=== PATIENT | female | born 2000 | race Caucasian/White ===

== ENCOUNTER 2022-07-24 10:55 | Emergency (ER) | payer OTHER, MEDICAID, SELFPAY ==
[2022-07-24 10:55] VITALS: BP 128/79; PULSE 84; RESP 18; TEMP 36.5; O2SAT 99; BMI 32.8
--- NOTE | 2022-07-24 12:07 | US_ITS ---
STUDY: ABDOMINAL ULTRASOUND - RIGHT UPPER QUADRANT REASON FOR VISIT: Female, 22 years old . Right upper quadrant pain. TECHNIQUE: Ultrasound evaluation of the right upper quadrant was performed with real-time and static qureshi-scale imaging. TECHNICAL QUALITY: Adequate. COMPARISON: None. FINDINGS: Liver: The liver measures 11.9 cm. There is normal echogenicity of the liver. The bile ducts are within normal limits. There is hepatic color flow. The direction of portal flow is hepatopetal. There is no demonstrated mass lesion. Gallbladder: Normal distended gallbladder. The gallbladder wall measures 2.3 mm. There is a negative sonographic Zhao''s sign. There is no pericholecystic fluid. There are no gallstones. Common Bile Duct (C.B.D.): The common bile duct measures 2.2 mm. Pancreas: There is nonvisualization of the pancreas due to overlying bowel gas. Right Kidney: Normal size of the right kidney. The right kidney measures 9.5 cm x 4.4 cm x 4 cm. Normal renal cortex. The right cortex measures 1.5 cm. There is no demonstrated renal mass or cyst. There is no right hydronephrosis. US/Gallbladder IMPRESSION: Normal right upper quadrant ultrasound examination. Electronically Signed: Dave Bergman MD at 13:31 EDT ,
--- NOTE | 2022-07-24 12:09 | ED.VIS.GI ---
HPI HPI - GI History of Present Illness Chief Complaint: Abd Pain Detail of Chief Complaint: Abdominal pain since October Informant: patient Abdominal Pain/Flank Pain Current Severity: 03/09 Narrative Narrative: Patient presents the emergency department complaint of abdominal pain since October of this year. Patient describes frequent loose stools and watery stools. Patient has been seen at [facility] where she has had a pelvic ultrasound which was unremarkable. Patient had some blood work which apparently was unremarkable. Patient also was seen and had EGD and colonoscopy which were unremarkable in March. Patient states patient has frequent abdominal pain is mostly upper abdomen and made worse by eating. Patient is attempted to change her diet and eat more protein and raw vegetables and fruit and that has not made any difference in her pain. She denies any blood in her stool. She denies family history of inflammatory bowel disease. [facility] Medical History (Updated 07/24/22 @ 16:[address] Karon Gómez, DO) Abdominal pain Diarrhea Hemorrhage of anus and rectum IBS (irritable bowel syndrome) Pelvic pain Home Medications dicyclomine 10 mg capsule 20 mg PO TIDAC #20 CAPSULES 07/24/22 [Rx Last Taken Unknown] medroxyprogesterone 150 mg/mL intramuscular suspension (Depo-Provera) 300 mg IM QMONTH 07/24/22 [History Last Taken Unknown] ondansetron 4 mg disintegrating tablet 4 mg PO Q8H PRN PRN Nausea #10 tabs 07/24/22 [Rx Last Taken Unknown] Allergy/AdvReac Type Severity Reaction Status Date / Time No Known Allergies Allergy Verified 07/24/22 10:57 Family History (Updated 06/13/22 @ 11:12 by Radha Brath) Father Osteomyelitis Diabetes Mother Thyroid disorder Asthma Kidney disease Social History (Updated 06/13/22 @ 11:12 by Radha Barth) Smoking Status: Former smoker alcohol intake: current alcohol intake frequency: a few times a month ROS ROS ED Review of Systems ROS Unobtainable: other Constitutional Constitutional ED: Reports lethargy; Denies chills, fever(s), sweats or weight loss Eyes Eyes: Denies blurry vision, change in vision or diplopia ENT ENT ED: Denies rhinorrhea or sore throat Cardiovascular Cardiovascular: Denies chest pain, orthopnea or racing heartbeat Respiratory/Chest Respiratory/Chest: Denies cough, dyspnea, dyspnea on exertion, orthopnea or sputum Gastrointestinal Gastrointestinal: Reports abdominal pain, diarrhea and nausea; Denies vomiting Genitourinary Genitourinary ED: Denies dysuria, hematuria or urinary frequency Musculoskeletal Musculoskeletal: Denies arthralgias, back pain, myalgias or neck pain Integumentary Denies abscess, Abrasions or rash Neurologic Neurologic: Denies headache(s) or weakness Psychiatric Psychiatric: Denies anxiety, depression or suicidal thoughts Endocrine Endocrinology: Denies polydipsia, polyphagia or polyuria Hematologic/Lymphatic Hematologic/Lymphatic: Denies easy bleeding, easy bruising or lymphadenopathy Allergic/Immunologic Allergic/Immunologic ED: Denies mouth swelling, tongue swelling or urticaria EXAM Physical Exam Const Vital Signs: 07/24/22 10:55 07/24/22 15:25 Temperature 97.7 F L Temperature Source Temporal Pulse Rate 84 85 Respiratory Rate 18 16 Blood Pressure 128/79 H 107/77 Blood Pressure Mean 95 87 Pulse Ox 99 99 Oxygen Delivery Method Room Air Room Air Positive well nourished and well developed General Appearance ED: well developed and NAD HEENT Reports TM's clear and moist mucous membranes normocephalic and atraumatic; Negative for trauma or tenderness Tympanic Membrane ED: Yes TM's clear Eyes PERRL and EOMs intact bilaterally General Eye ED: Negative for pale conjunctiva or scleral icterus Neck no lymphadenopathy, supple and no JVD General: Negative for tenderness Chest Wall inspection of chest normal and palpation of chest normal Chest: Negative for tenderness Resp normal respiratory effort and clear to auscultation bilaterally Effort and Inspection: Negative for respiratory distress or pain with movement Auscultation: Negative for rhonchi, wheezes or diminished lung sounds Cardio regular rate, regular rhythm, S1 normal heart sound, S2 normal heart sound and no murmurs Peripheral Pulses: pulses 2+ throughout GI normal to inspection, nondistended, normoactive bowel sounds, soft to palpation, non-distended and no masses GI Narrative: Tenderness to right upper quadrant with guarding. She has a positive Zhao sign. No rebound, rigidity, or peritoneal signs. Back/Spine no CVA tenderness and no thoracic nor lumbar tenderness Extremity normal to inspection General Extremety ED: Negative for edema General Extremity: Negative for edema Neuro oriented x3, CN's II-XII intact bilaterally, no sensory deficits noted and gait normal Sensorium / Orientation: awake, alert, oriented to person, oriented to place and oriented to time Motor Exam: strength 5/5 throughout and strength abnormal Psych mental status grossly normal Skin no rashes or lesions noted and no wounds MDM MDM MDM Narrative Medical decision making narrative: IV line established on arrival. Patient was medicated morphine and Zofran. Patient had normal labs. Urinalysis was unremarkable. Patient had an ultrasound of the gallbladder that was normal. I did order a CT scan of the abdomen pelvis with IV and p.o. contrast and the results of this will be pending. Case turned over to evening physician awaiting CT results and final disposition. I felt that if this CT was normal patient could be sent home with Dai and Kirk. Patient has a follow-up scheduled with GI. Lab Data Attestation: I reviewed the patient's lab results. Labs: Laboratory Results - last 24 hr 07/24/22 07/24/22 07/24/22 12:15 12:25 12:25 WBC 10.3 RBC 4.92 Hgb 14.5 Hct 43.8 MCV 89.0 MCH 29.5 MCHC 33.1 RDW Std Deviation 39.7 RDW Coeff of Ramon 12.1 Plt Count 285 MPV 10.0 Immature Gran % (Auto) 0.300 Neut % (Auto) 74.7 H Lymph % (Auto) 18.6 L [place] % (Auto) 5.3 Eos % (Auto) 0.8 Baso % (Auto) 0.3 Absolute Neuts (auto) 7.7 Absolute Lymphs (auto) 1.91 Nucleated RBC % 0 Sodium 141 Potassium 3.6 Chloride 109 H Carbon Dioxide 27.0 Anion Gap 5 BUN 7 Creatinine 0.73 Estim Creat Clear Calc 99.15 Est GFR (MDRD) Af Amer 126 Est GFR (MDRD) Non-Af 104 BUN/Creatinine Ratio 9.5 L Glucose 86 Lactic Acid Calcium 9.2 Total Bilirubin 0.50 AST 9 L ALT 19 Alkaline Phosphatase 71 Total Protein 7.7 Albumin 4.1 Globulin 3.6 Albumin/Globulin Ratio 1.1 Lipase 87 Serum , Qual Urine Color Yellow Urine Clarity Sl. Cloudy Urine pH 8.0 Ur Specific [place] 1.010 Urine Protein Negative Urine Glucose (UA) Normal Urine Ketones Negative Urine Occult Blood Negative Urine Nitrite Negative Urine Bilirubin Negative Urine Urobilinogen Normal Ur Leukocyte Esterase 25 H Urine RBC 0 SEEN Urine WBC 0-5 SEEN Ur Squamous Epith Cells 0-5 SEEN Urine Bacteria 0 SEEN Urine Mucus 0 SEEN 07/24/22 07/24/22 12:25 12:25 WBC RBC Hgb Hct MCV MCH MCHC RDW Std Deviation RDW Coeff of Ramon Plt Count MPV Immature Gran % (Auto) Neut % (Auto) Lymph % (Auto) [place] % (Auto) Eos % (Auto) Baso % (Auto) Absolute Neuts (auto) Absolute Lymphs (auto) Nucleated RBC % Sodium Potassium Chloride Carbon Dioxide Anion Gap BUN Creatinine Estim Creat Clear Calc Est GFR (MDRD) Af Amer Est GFR (MDRD) Non-Af BUN/Creatinine Ratio Glucose Lactic Acid 1.5 Calcium Total Bilirubin AST ALT Alkaline Phosphatase Total Protein Albumin Globulin Albumin/Globulin Ratio Lipase Serum , Qual NEGATIVE Urine Color Urine Clarity Urine pH Ur Specific [place] Urine Protein Urine Glucose (UA) Urine Ketones Urine Occult Blood Urine Nitrite Urine Bilirubin Urine Urobilinogen Ur Leukocyte Esterase Urine RBC Urine WBC Ur Squamous Epith Cells Urine Bacteria Urine Mucus Radiography Diagnostic Testing: Clinical Impression(s) from Imaging Studies Gallbladder Ultrasound 07/24/22 12:07 IMPRESSION: Normal right upper quadrant ultrasound examination. Electronically Signed: Dave Bergman MD at 13:31 EDT , Discharge Plan Triage Chief Complaint: Abd Pain ED Provider: Karon Gómez Dx/Rx/DC Orders Clinical Impression: Abdominal pain Instructions: ED Abdominal Pain Unkn Cause Fem Prescriptions: New ondansetron [ondansetron] 4 mg tablet,disintegrating 4 mg PO Q8H PRN PRN (Reason: Nausea) Qty: 10 0RF dicyclomine 10 mg capsule 20 mg PO TIDAC Qty: 20 0RF No Action medroxyprogesterone [Depo-Provera] 150 mg/mL Suspension 300 mg IM QMONTH Primary Care Provider: Rosalie Hopkins NP Referrals: Rosalie Hopkins NP, [employer] MACHINE SET UP OPERATOR-C [Primary Care Provider] - Disposition Disposition: Home, Self Care
[2022-07-24] MEDS: 0.9% Normal Saline 1,000 ML 125 ML IV (12:23)
[2022-07-24 12:30] LABS: Bacteria 0 SEEN /hpf (None Seen); Mucous, Urine 0 SEEN /hpf (<or=2+); Red Blood Cells-Urine 0 SEEN /hpf (0-5)
[2022-07-24 12:32] LABS: Absolute Lymphocyte Count 1.91 X10^3/uL (0.83-4.51); Absolute Neutrophil Count 7.7 X10^3/uL (2.0-7.7); Basophil# 0.03 X10^3/uL; Basophil% 0.3 % (0-1); Eosinophil# 0.08 X10^3/uL; Eosinophils% 0.8 % (0-5); Hematocrit 43.8 % (37-47); Hemoglobin 14.5 g/dL (12.0-15.0); Lymphocyte # 1.91 X10^3/ul (0.83-4.51); Lymphocyte % 18.6 % (19-41); Mean Corp Hgb Conc 33.1 g/dL (32-36); Mean Corpuscular Hgb 29.5 pg (27.0-32.0); Monocyte# 0.55 X10^3/uL; Monocyte% 5.3 % (0-10); NRBC Flagged by Analyzer 0 % (0-5); Neutrophil # 7.69 X10^3/uL (2.7-7.7); Neutrophil % 74.7 % (47-70); Platelet Count 285 K/mm3 (150-450); RBC Distribution Width CV 12.1 % (11.6-14.6); RBC Distribution Width SD 39.7 fl (35.1-43.9); Red Blood Count 4.92 M/mm3 (4.2-5.4); White Blood Count 10.3 K/mm3 (4.4-11.0)
[2022-07-24 12:36] LABS: Color, Urine Yellow (Yellow); Glucose, Dipstick Normal (Normal); Ketone-Dipstick Negative (Negative); Leukocyte Esterase-Dipstick 25 /ul (Negative); Nitrite-Dipstick Negative (Negative); Occult Blood-Urine Negative /ul (Negative); Protein-Dipstick Negative (Negative); Urine Bilirubin Dipstick Negative (Negative); Urine Clarity Sl. Cloudy (Clear); Urine Urobilinogen Normal (Normal)
[2022-07-24 12:42] LABS: Squamous Epithelial Cells - UA 0-5 SEEN /hpf (5-10); White Blood Cells 0-5 SEEN /hpf (0-5)
[2022-07-24 12:50] LABS: ALB/GLOB Ratio 1.1 RATIO (0.9-2.4); AST(SGOT) 9 U/L (15-37); Alanine Aminotransfer ALT/SGPT 19 U/L (13-56); Albumin, Serum 4.1 g/dL (3.2-5.0); Alkaline Phosphatase 71 U/L (45-117); Anion Gap 5 (5-15); BUN 7 mg/dL (7-18); BUN/Creat Ratio 9.5 RATIO (10-20); Calcium,Total 9.2 mg/dL (8.5-10.1); Chloride 109 mmol/L (98-107); Creatinine, Serum 0.73 mg/dL (0.55-1.02); EST Glomerular Filtration Rate 104 mL/min (>60); Est Glom Filt Rate - Afr Amer 126 mL/min (>60); Estimated Creatinine Clearance 99.15 ml/min; Globulin 3.6 g/dL (2.2-4.2); Glucose 86 mg/dL (74-106); Lipase 87 U/L (73-393); Potassium 3.6 mmol/L (3.5-5.1); Protein, Total 7.7 g/dL (6.4-8.2); Sodium Level 141 mmol/L (136-145)
[2022-07-24 13:01] LABS: Lactic Acid 1.5 mmol/L (0.4-1.9)
[2022-07-24 13:03] LABS: Internal QC Validated? YES +Cl - CLEAR BKGD; Pregnancy, Serum, hCG Quali. NEGATIVE Negative
--- NOTE | 2022-07-24 15:20 | CT_ITS ---
STUDY: CT Abdomen And Pelvis W/ Contrast Injection 07/24/2022 5:27 PM REASON FOR EXAM: Female, 22 years old. ABDOMINAL PAIN abdominal pain TECHNIQUE: Transaxial images were obtained with oral contrast, and with Oral and amp; IV Gastrografin and amp; 100mL Isovue-370 intravenous contrast. Individualized dose optimization techniques were used for this CT. COMPARISON: None. FINDINGS: The visualized lung bases are unremarkable. The visualized portions of the heart are within normal limits. Unremarkable liver. Unremarkable gallbladder and extrahepatic biliary system. Unremarkable spleen. Unremarkable pancreas. Unremarkable bilateral adrenal glands. No acute findings of the right kidney. No acute findings of the left kidney. Unremarkable visualized stomach. Unremarkable small intestine. There is wall inflammation of the entire colon. This can suggest a colitis. This can also suggest incomplete distension of the colon. The appendix is visualized and appears unremarkable. There are no acute findings of the abdominal aorta. Unremarkable inferior vena cava. Subcentimeter mesenteric lymph nodes. Unremarkable urinary bladder. There is an umbilical hernia containing fat. Unremarkable osseous structures. CT/Abdomen/Pelvis WITH Contrast IMPRESSION: (NOT LISTED IN ORDER OF SIGNIFICANCE) There is pancolitis. Other findings as above. Electronically Signed: Smith Herrmann MD at 17:34 EDT ,
[2022-07-24 15:25] VITALS: BP 107/77; PULSE 85; RESP 16; O2SAT 99
[2022-07-24] MEDS: Morphine 4 MG/ML Syringe IV (15:26)
[2022-07-24] MEDS: Ondansetron 4 MG/2 ML Vial IV (15:26)
[2022-07-24 17:16] VITALS: BP 111/81; PULSE 87; RESP 16; O2SAT 100
[2022-07-24 18:43] VITALS: BP 112/75; PULSE 75; RESP 16; O2SAT 98
== END 2022-07-24 18:44 | disposition home or self-care (01) ==
PROVIDERS: Emergency Medicine; Emergency Provider Emergency Medicine; PCP Nurse Practitioner Family; Visit Provider Emergency Medicine
DX: R10.9 Unspecified abdominal pain (principal); R19.7 Diarrhea, unspecified; R11.0 Nausea; Z87.891 Personal history of nicotine dependence
CPT/HCPCS: 74177; 76705; 80053; 81001; 83605; 83690; 84703; 85025; 96374; 96375; 99283; J7030; Q9967; A4216; J2405

== ENCOUNTER 2022-08-17 16:26 | Outpatient (CLI) | payer OTHER, MEDICAID, SELFPAY ==
[2022-08-17 17:30] LABS: Absolute Lymphocyte Count 2.26 X10^3/uL (0.83-4.51); Absolute Neutrophil Count 6.9 X10^3/uL (2.0-7.7); Basophil# 0.03 X10^3/uL; Basophil% 0.3 % (0-1); Eosinophil# 0.09 X10^3/uL; Eosinophils% 0.9 % (0-5); Hematocrit 41.3 % (37-47); Hemoglobin 14.2 g/dL (12.0-15.0); Lymphocyte # 2.26 X10^3/ul (0.83-4.51); Lymphocyte % 22.9 % (19-41); Mean Corp Hgb Conc 34.4 g/dL (32-36); Mean Corpuscular Hgb 30.2 pg (27.0-32.0); Mean Corpuscular Volume 87.9 fL (81-99); Mean Platelet Vol. 9.9 fl (6.2-12.0); Monocyte# 0.61 X10^3/uL; Monocyte% 6.2 % (0-10); NRBC Flagged by Analyzer 0 % (0-5); Neutrophil # 6.88 X10^3/uL (2.7-7.7); Neutrophil % 69.5 % (47-70); Platelet Count 312 K/mm3 (150-450); RBC Distribution Width CV 12.1 % (11.6-14.6); RBC Distribution Width SD 39.4 fl (35.1-43.9); White Blood Count 9.9 K/mm3 (4.4-11.0)
[2022-08-17 17:49] LABS: Erythrocyte Sedimentation Rate 14 mm/hr (0-30); Microcytosis 9.9
[2022-08-17 18:20] LABS: Rubella IgG Reactive (Nonreactive)
[2022-08-17 18:22] LABS: ALB/GLOB Ratio 1.3 RATIO (0.9-2.4); AST(SGOT) 10 U/L (15-37); Alanine Aminotransfer ALT/SGPT 20 U/L (13-56); Albumin, Serum 4.4 g/dL (3.2-5.0); Alkaline Phosphatase 61 U/L (45-117); Amylase 32 U/L (25-115); Anion Gap 10 (5-15); BUN 5 mg/dL (7-18); BUN/Creat Ratio 7.8 RATIO (10-20); CPK Total, Creatine Kinase 64 U/L (26-192); CRP 6.22 mg/L (0.0-3.0); Calcium,Total 9.9 mg/dL (8.5-10.1); Chloride 110 mmol/L (98-107); Creatinine, Serum 0.64 mg/dL (0.55-1.02); EST Glomerular Filtration Rate 121 mL/min (>60); Est Glom Filt Rate - Afr Amer 147 mL/min (>60); Globulin 3.5 g/dL (2.2-4.2); Glucose 85 mg/dL (74-106); LDH 134 U/L (84-246); Lipase 122 U/L (73-393); Potassium 3.5 mmol/L (3.5-5.1); Protein, Total 7.9 g/dL (6.4-8.2); Sodium Level 140 mmol/L (136-145)
[2022-08-20 13:07] LABS: Anti-Centromere B Ab <0.2 AI (0.0-0.9); Anti-Chromatin <0.2 AI (0.0-0.9); Anti-Jo <0.2 AI (0.0-0.9); Anti-Scleroderma-70 AB <0.2 AI (0.0-0.9); RNP Ab <0.2 AI (0.0-0.9); SJOGREN'S Anti-SS-A test < 0.2 AI (0.0-0.9); SJOGREN'S Anti-SS-B test < 0.2 AI (0.0-0.9); Smith Ab 0.2 AI (0.0-0.9)
[2022-08-20 15:08] LABS: Endomysial Antibody IgA Negative (Negative)
[2022-08-20 17:03] LABS: Immunoglobulin A 143 mg/dL (87-352); t-Transglutaminase IgA <2 U/mL (0-3)
[2022-08-20 17:38] LABS: Anti-dsDNA Ab 1 IU/mL (0-9)
[2022-08-25 01:06] LABS: Albumin 4.3 g/dL (2.9-4.4); Alpha-1-Globulins 0.3 g/dL (0.0-0.4); Alpha-2-Globulins 0.9 g/dL (0.4-1.0); Cytoplasmic Ab (C-ANCA) <1:20 titer (Neg:<1:20); HEPATITIS B SURFACE AG Negative (Negative); Hep C Antibodies <0.1 s/co ratio (0.0-0.9); Hepatitis A IgM Antibody Negative (Negative); Hepatitis B Core AB IgM Negative (Negative); Immunoglobulin A 139 mg/dL (87-352); Immunoglobulin E 16 IU/mL (6-495); Immunoglobulin G 911 mg/dL (586-1602); Immunoglobulin M 70 mg/dL (26-217); PROEL- TOTAL PROTEIN 7.6 g/dL (6.0-8.5); QNTFERON TB Mitogen Value > 10.00 IU/mL (.); QNTFERON TB Nil Value 0.09 IU/mL (.); QNTFERON TB1+ Ag Value 0.08 IU/mL (.); QNTFERON TB2+ Ag Value 0.03 IU/mL (.)
[2022-08-26 14:43] LABS: Aldolase 5.2 U/L (3.3-10.3); B. pertussis IgG 2.66 index (0.00-0.94); Mumps Antibody, IgM < 0.80 AU (0.00-0.79); Perinuclear Ab (P-ANCA) <1:20 titer (Neg:<1:20); QNTIFERON TB Positive Criteria Negative (Negative); V-Zoster IgG (Immunity) 195 index (Immune >165)
== END 2022-08-17 23:59 | disposition home or self-care (01) ==
PROVIDERS: PCP Nurse Practitioner Family; Referring Provider Internal Medicine Gastroenterology; Visit Provider Internal Medicine Gastroenterology
DX: R19.7 Diarrhea, unspecified (principal)
CPT/HCPCS: 36415; 80053; 80074; 82085; 82150; 82550; 82784; 82785; 83516; 83615; 83690; 84165; 85025; 85652; 86140; 86225; 86235; 86255; 86256; 86334; 86480; 86615; 86735; 86762; 86787

== ENCOUNTER 2022-09-05 08:52 | Outpatient (CLI) | payer OTHER, MEDICAID, SELFPAY ==
[2022-09-08 20:30] LABS: Calprotectin, Stool 48 ug/g (0-120)
== END 2022-09-05 23:59 | disposition home or self-care (01) ==
LOC: LABSPEC 08:54
PROVIDERS: PCP Nurse Practitioner Family; Referring Provider Internal Medicine Gastroenterology; Visit Provider Internal Medicine Gastroenterology
DX: R19.7 Diarrhea, unspecified (principal)
CPT/HCPCS: 82653; 83630; 83993

== ENCOUNTER 2022-11-28 06:06 | Day surgery (SDC) | payer OTHER, MEDICAID, SELFPAY ==
[2022-11-28 06:31] VITALS: BP 103/66; PULSE 74; RESP 18; TEMP 36.3; O2SAT 100
[2022-11-28 06:38] LABS: Internal QC Validated? YES +Cl - CLEAR BKGD; Pregnancy, Urine Negative Negative
[2022-11-28] MEDS: Lactated Ringers 1,000 ML 15 ML IV (06:44)
--- NOTE | 2022-11-28 07:04 | PCM.HP.BLA ---
History and Physical Date of Admission: 11/28/22 22 F who presents to the office today for one month follow-up diarrhea with blood, abdominal pain and cramping, nausea.? She reports a lifelong history of loose stools however she had a significant change in bowels in October 2021??she quit smoking and then developed significant diarrhea, more frequent stools, cramping and abdominal pain.? The rectal bleeding began in March 2022. Mornings are the worst, 5-6 bouts of diarrhea, the diarrhea wakes her in the morning. She has woken in the night with diarrhea. Occas tenesmus. Intermittent bouts of rectal bleeding, can be mixed in stool, or just blood passing with some clots, she reports rectal bleeding for the past 5 days. Has constant nausea, doesn't vomit; no relief with Phenergan.? She has heartburn, does not take anything for that.? Lots of belching.? She had blurry vision on dicyclomine, the medication did not help with her symptoms.? She has been on hyoscyamine routinely but no relief of the cramping or pain or diarrhea.? Also no relief with Zenpep.? She has had a 20 pound unintentional weight loss this year.? In addition to quitting smoking she made improvements in nutrition, is cooking at home.? She tries to eat a yogurt every morning. 07/2022 labs: CRP elevated 6.22, IBD panel suggestive of Crohn's.? Remainder of work-up unremarkable including stool lactoferrin, stool calprotectin, fecal elastase, CBC, CMP, ESR, immunoglobulins, SPEP with TORREY, ANCA, ANISH comprehensive, celiac, hepatitis panel, QuantiFERON TB Gold Stool studies lactoferrin, C.difficile, occult, enteric pathogens, ova/parasites WNL. Biochemical workup CBC, CMP, LFT AST L9 Colonoscopy and EGD Dr. Nando Denise which she reports as normal; Argelia reports he did not take biopsies. CT abd/pel 07.24.22 noting wall inflammation of the entire colon suggesting colitis versus incomplete distention. ROS Const Constitutional: Positive for fatigue and weight change ENT ENT: No difficulty swallowing Gastro GI: No abdominal pain, belching, bloating, change in bowel habits, change in stool character, coffee ground emesis, constipation, cramping, diarrhea, heartburn, difficulty swallowing, feeling full early, excessive flatus, incontinent of stools, Vomiting blood/hematemesis, Blood in stool, loose stools, Black,tarry stools, nausea/dyspepsia, pain with swallowing, vomiting or other Musc Musculoskeletal: No joint pain Skin Skin: No yellowing of the eye or itchy eyes Psych Psychiatric: Positive for anxiety and Positive for depression Endo Endocrine: Positive for fatigue and weight change Aller/Imm Allergy/Immunologic: No itchy eyes Raffaele/Lymp Hematologic/Lymphatic: No easy bleeding or easy bruising Exam Const General: cooperative, comfortable and no acute distress Nutritional Appearance: obese Orientation: alert, awake and oriented x3 HENMT Head: normal to inspection Eyes Conjunctivae: conjunctivae normal Sclera: sclerae normal Chest Chest palpation & inspection: normal inspection of the chest Resp Effort & Inspection: normal respiratory effort GI Inspection: normal to inspection Palpation: soft, no hepatosplenomegaly, no masses and tender in the LLQ and in the RLQ General: bladder normal to palpation Bimanual Exam- Vagina & Uterus: bladder normal to palpation Skin General: no rashes or lesions noted Neuro Gait: normal gait Psych Mood: euthymic mood Quality Reporting Tobacco Screening ([facility] 138) Smoking Status: Former smoker Assessment and Plan Assessment and Plan (1) Diarrhea: ?Status:?Chronic ?Plan: 22-year-old female with chronic diarrhea, rectal bleeding, abdominal cramping, as well as heartburn and nausea.? She is most bothered by the diarrhea and rectal bleeding.? We reviewed her lab work-up.? Suggestion of Crohn's per IBD panel.? Stop hyoscyamine and zenpep since not effective. Rx for colestipol 1 g p.o. once or twice a day, if not effective we can try something else.? She declines anything for nausea or heartburn at this time.? We discussed additional work-up including EGD and colonoscopy with biopsies, those will be scheduled along with follow-up in the office 2 weeks later.? She is interested in pursuing capsule endoscopy prior to that so we will get that set up if allowed by insurance. (2) Rectal bleeding: ?Status:?Acute ?Plan: as above ? ? ? Medications: New colestipol ?1 g orally once or twice a day 60 tabs 1RF diarrhea ? ? Discontinued dicyclomine ?? Discontinued Reason:? Pt no longer taking 20 mg (2 x 10 mg) PO TIDAC 20 CAPSULES 0RF ? ? ondansetron ?? Discontinued Reason:? Pt no longer taking 4 mg? PO Q8H PRN PRN 10 tabs 0RF Nausea ? ? I have examined the patient and the H&P has been reviewed. There are no clinical changes since date of exam.
--- NOTE | 2022-11-28 07:15 | IMM_PTH ---
PATIENT: DANII LYLES LOC: EN U#:[id number] AGE/SX: ROOM: RE11/28/[address]: Dr. Herbert Wilder DO : 2000 BED: DIS: 11/28/2022 SPEC #: [id number] RECD: 11/28/22 13:40 STATUS: JAVIER REQ #: [id number] TRU: 11/28/22 07:[address]: Herbert Wilder DEPT: IMMUNOHISTOCHEMISTRY RECD BY: Sherri Prasad ENTERED: 11/28/22 13:41 SP TYPE: IMMUNO OTHR DR: Rosalie Hopkins, IT CONSULTING DIRECTOR-C Tissues: B - Stomach, NOS Procedures: H Pylori (initial) PHYSICIAN & INSTITUTION [place] [id number] SPECIMEN INFORMATION: Tissue Source: B ? Gastric body Clinical Info: Diarrhea, rectal bleeding Specimen Number: [id number] CPT code: 03824 METHODOLOGY: Deparaffinized sections of prefer/formalin-fixed tissue or PAP/DQ stained slides are incubated with monoclonal/polyclonal antibodies/oligonucleotide probes. Localization is made via biotin free immunoperoxidase method. Appropriate controls are performed and reacted as expected. Results on target cell population are indicated in the following table: RESULTS: ANTIBODY / CLONE RESULT Block B H Pylori (polyclonal) negative These tests were developed and their performance characteristics determined by [facility]. They may not have been cleared or approved by the U.S. Food and Drug Administration. The FDA has determined that such clearance or approval is not necessary. The above immunohistochemical/dualISH markers are ordered and reviewed by the Pathologist. INTERPRETATION: B. Gastric body, biopsy: Negative for Helicobacter pylori organisms. AM:zachariah 11/29/2022
--- NOTE | 2022-11-28 07:15 | COLBX_PTH ---
PATIENT: DANII LYLES LOC: EN U#:[id number] AGE/SX: 22/ ROOM: RE11/28/[address]: Dr. Herbert Wilder DO : 2000 BED: DIS: 11/28/2022 SPEC #: [id number] RECD: 11/28/22 09:28 STATUS: JAVIER REyK #: [id number] TRU: 11/28/22 07:[address]: Herbert Wilder DEPT: SURGICAL PATHOLOGY RECD BY: Falguni Atwood ENTERED: 11/28/22 12:37 SP TYPE: COLON BX OTHR DR: Rosalie Hopkins, ECOLOGY TEACHER-C Tissues: A - Duodenum, NOS B - Gastric mucous membrane C - Esophagus, NOS D - Ileum, NOS E - COLON BIOPSY Procedures: Special Stain Group II Surgery Specimen Level IV Alcian Blue/PAS (control) HEADER OPERATION: Colonoscopy, EGD ([facility] biopsy PRE-OP DIAGNOSIS: Diarrhea, rectal bleeding TISSUE SUBMITTED: A ? Duodenum biopsy, B ? Gastric body biopsy, C ? Distal esophagus biopsy, D ? Terminal ileum biopsy, E ? Random colon biopsy MICROSCOPIC DIAGNOSIS A. Duodenum, biopsy: No pathologic change. B. Gastric body, biopsy: Mild chronic gastritis. See comment. C. Distal esophagus, biopsy: Gastroesophageal junctional mucosa with chronic inflammation. Focal changes of reflux. No evidence of goblet cell metaplasia. See comment. D. Terminal ileum, biopsy: No pathologic change. E. Colon, random biopsy: Consistent with lymphocytic colitis. AM:zachariah 11/29/2022 COMMENT B. The results of immunohistochemistry for Helicobacter pylori will be reported separately ([id number]). C. Alcian blue/PAS stain with matched control supports the above diagnosis. MICROSCOPIC DESCRIPTION Slides are reviewed. GROSS DESCRIPTION A - Received in fixative is one container labeled with the patient's name and designated biopsy duodenum. The specimen consists of multiple irregular fragments of light avilez soft tissue that in aggregate measure 0.7 x 0.4 x 0.1 cm. The specimen is totally submitted in one cassette. B - Received in fixative is one container labeled with the patient's name and designated biopsy gastric body. The specimen consists of two irregular fragments of light avilez soft tissue that in aggregate measure 0.6 x 0.5 x 0.1 cm. The specimen is totally submitted in one cassette. C - Received in fixative is one container labeled with the patient's name and designated biopsy distal esophagus. The specimen consists of two irregular fragments of light avilez soft tissue that in aggregate measure 0.6 x 0.2 x 0.1 cm. The specimen is totally submitted in one cassette. D - Received in fixative is one container labeled with the patient's name and designated biopsy terminal ileum. The specimen consists of multiple irregular fragments of light avilez soft tissue that in aggregate measure 1.2 x 0.5 x 0.1 cm. The specimen is totally submitted in one cassette. E - Received in fixative is one container labeled with the patient's name and designated biopsy random colon. The specimen consists of multiple irregular fragments of light avilez soft tissue that in aggregate measure 1.5 x 0.5 x 0.1 cm. The specimen is totally submitted in one cassette. / SJ:rg 11/28/2022 TC:3 CPT: 21867 x5, 39397
[2022-11-28 07:42] VITALS: BP 103/66; BP 118/70; PULSE 95; RESP 20; TEMP 36.1; O2SAT 100
[2022-11-28 07:45] VITALS: BP 103/66; BP 95/58; PULSE 84; RESP 18; O2SAT 100
--- NOTE | 2022-11-28 07:47 | OP.CCLET_ITS ---
11/28/2022 Robb Ansari Re : Upper GI endoscopy procedure for Argelia Armstrong Dear Sandeep This procedure was performed on Monday, November 28, 2022. My impressions and recommendations are as follows: Impressions : - Z-line irregular, 37 cm from the incisors. Biopsied. - Bile gastritis. Biopsied. - Normal second portion of the duodenum. Biopsied. Recommendations : - Discharge patient to home. - Resume previous diet. - Continue present medications. - Await pathology results. My findings are described in the full procedure note, which is enclosed. If I can be of further assistance, please feel free to contact me at . Sincerely, Herbert Wilder, 11/28/2022 7:46:43 AM This report has been signed electronically.
--- NOTE | 2022-11-28 07:47 | OP.EGD_ITS ---
Patient Name: Argelia Armstrong Procedure Date: 11/28/2022 7:02 AM Date of : 2000 Age: 22 Procedure: Upper GI endoscopy Indications: Epigastric abdominal pain, Functional Dyspepsia Providers: Herbert Wilder DO Medicines: Monitored Anesthesia Care Patient Profile: This is a 22 year old female. Refer to note in patient chart for documentation of history and physical. Patient has symptoms of chronic abdominal cramping and chronic epigastric abdominal pain. Complications: No immediate complications. Procedure: Pre-Anesthesia Assessment: - Prior to the procedure, a History and Physical was performed, and patient medications and allergies were reviewed. The risks and benefits of the procedure and the sedation options and risks were discussed with the patient. All questions were answered and informed consent was obtained. Patient identification and proposed procedure were verified by the physician in the pre-procedure area. Mental Status Examination: alert and oriented. Airway Examination: normal oropharyngeal airway and neck mobility. Respiratory Examination: clear to auscultation. CV Examination: normal. Prophylactic Antibiotics: The patient does not require prophylactic antibiotics. Prior Anticoagulants: The patient has taken no previous anticoagulant or antiplatelet agents. ASA Grade Assessment: II - A patient with mild systemic disease. After reviewing the risks and benefits, the patient was deemed in satisfactory condition to undergo the procedure. The anesthesia plan was to use monitored anesthesia care (MAC). Immediately prior to administration of medications, the patient was re-assessed for adequacy to receive sedatives. The heart rate, respiratory rate, oxygen saturations, blood pressure, adequacy of pulmonary ventilation, and response to care were monitored throughout the procedure. The physical status of the patient was re-assessed after the procedure. After obtaining informed consent, the endoscope was passed under direct vision. Throughout the procedure, the patient's blood pressure, pulse, and oxygen saturations were monitored continuously. The Colonoscope was introduced through the mouth, and advanced to the second part of duodenum. The upper GI endoscopy was accomplished without difficulty. The patient tolerated the procedure well. Scope In: 7:14:20 AM Scope Out: 7:20:45 AM Total Procedure Duration Time 0 hours 6 minutes 25 seconds Findings: The Z-line was irregular and was found 37 cm from the incisors. Biopsies were taken with a cold forceps for histology. Verification of patient identification for the specimen was done. Estimated blood loss was minimal. Segmental mild inflammation characterized by erosions and erythema was found in the gastric body. Biopsies were taken with a cold forceps for histology. Verification of patient identification for the specimen was done. Estimated blood loss was minimal. Patchy mild inflammation characterized by erosions and erythema was found in the second portion of the duodenum. Biopsies were taken with a cold forceps for histology. Verification of patient identification for the specimen was done. Estimated blood loss was minimal. Impression: - Z-line irregular, 37 cm from the incisors. Biopsied. - Bile gastritis. Biopsied. - Normal second portion of the duodenum. Biopsied. Recommendation: - Discharge patient to home. - Resume previous diet. - Continue present medications. - Await pathology results. Procedure Code(s): --- Professional --- 12006, Esophagogastroduodenoscopy, flexible, transoral; with biopsy, single or multiple CPT copyright 2017 [employer]. All rights reserved. The codes documented in this report are preliminary and upon traveling missionary review may be revised to meet current compliance requirements. Herbert Wilder DO 11/28/2022 7:46:43 AM This report has been signed electronically. Number of Addenda: 0 Note Initiated On: 11/28/2022 7:02 AM
[2022-11-28 07:51] VITALS: BP 103/66; BP 93/54; PULSE 73; RESP 18; O2SAT 99
[2022-11-28 07:54] VITALS: BP 103/66; BP 105/68; PULSE 76; RESP 18; TEMP 36.3; O2SAT 100
--- NOTE | 2022-11-28 07:55 | OP.COLON_ITS ---
Patient Name: Argelia Armstrong Procedure Date: 11/28/2022 7:21 AM Date of : 2000 Age: 22 Procedure: Colonoscopy Indications: Hematochezia Providers: Herbert Wilder DO Medicines: Monitored Anesthesia Care Patient Profile: This is a 22 year old female. Refer to note in patient chart for documentation of history and physical. Patient has symptoms of chronic abdominal cramping and chronic epigastric abdominal pain. Last Colonoscopy: none. The patient's first colonoscopy is today. Complications: No immediate complications. Procedure: Pre-Anesthesia Assessment: - Prior to the procedure, a History and Physical was performed, and patient medications and allergies were reviewed. The risks and benefits of the procedure and the sedation options and risks were discussed with the patient. All questions were answered and informed consent was obtained. Patient identification and proposed procedure were verified by the physician in the pre-procedure area. Mental Status Examination: alert and oriented. Airway Examination: normal oropharyngeal airway and neck mobility. Respiratory Examination: clear to auscultation. CV Examination: normal. Prophylactic Antibiotics: The patient does not require prophylactic antibiotics. Prior Anticoagulants: The patient has taken no previous anticoagulant or antiplatelet agents. ASA Grade Assessment: II - A patient with mild systemic disease. After reviewing the risks and benefits, the patient was deemed in satisfactory condition to undergo the procedure. The anesthesia plan was to use monitored anesthesia care (MAC). Immediately prior to administration of medications, the patient was re-assessed for adequacy to receive sedatives. The heart rate, respiratory rate, oxygen saturations, blood pressure, adequacy of pulmonary ventilation, and response to care were monitored throughout the procedure. The physical status of the patient was re-assessed after the procedure. After I obtained informed consent, the scope was passed under direct vision. Throughout the procedure, the patient's blood pressure, pulse, and oxygen saturations were monitored continuously. The Colonoscope was introduced through the anus and advanced to the terminal ileum. The colonoscopy was performed without difficulty. The patient tolerated the procedure well. The quality of the bowel preparation was good. Scope In: 7:23:34 AM Scope Withdrawal Time 0 hours 10 minutes 1 second Scope Out: 7:37:33 AM Total Procedure Duration Time 0 hours 13 minutes 59 seconds Findings: The perianal and digital rectal examinations were normal. A localized area of moderately erythematous mucosa was found at the anus. An area of mildly congested mucosa was found in the transverse colon, at the hepatic flexure and in the ascending colon. Biopsies were taken with a cold forceps for histology. Verification of patient identification for the specimen was done. Estimated blood loss was minimal. A localized area of the terminal ileum was congested. Biopsies were taken with a cold forceps for histology. Verification of patient identification for the specimen was done. Estimated blood loss was minimal. Impression: - Erythematous mucosa at the anus. - Congested mucosa in the transverse colon, at the hepatic flexure and in the ascending colon. Biopsied. - Congested mucosa in the terminal ileum. Biopsied. Recommendation: - Discharge patient to home. - Resume previous diet. - Use hydrocortisone suppository 25 mg 2 per rectum once a day for 2 weeks. - Repeat colonoscopy is recommended for surveillance. The colonoscopy date will be determined after pathology results from today's exam become available for review. - Continue present medications. Procedure Code(s): --- Professional --- 07151, Colonoscopy, flexible; with biopsy, single or multiple CPT copyright 2017 [employer]. All rights reserved. The codes documented in this report are preliminary and upon endoscopy registered nurse review may be revised to meet current compliance requirements. Herbert Wilder DO 11/28/2022 7:55:05 AM This report has been signed electronically. Number of Addenda: 0 Note Initiated On: 11/28/2022 7:21 AM
--- NOTE | 2022-11-28 07:55 | OP.CCLET_ITS ---
11/28/2022 Robb Ansari Re : Colonoscopy procedure for Argelia Armstrong Dear Sandeep This procedure was performed on Monday, November 28, 2022. My impressions and recommendations are as follows: Impressions : - Erythematous mucosa at the anus. - Congested mucosa in the transverse colon, at the hepatic flexure and in the ascending colon. Biopsied. - Congested mucosa in the terminal ileum. Biopsied. Recommendations : - Discharge patient to home. - Resume previous diet. - Use hydrocortisone suppository 25 mg 2 per rectum once a day for 2 weeks. - Repeat colonoscopy is recommended for surveillance. The colonoscopy date will be determined after pathology results from today's exam become available for review. - Continue present medications. My findings are described in the full procedure note, which is enclosed. If I can be of further assistance, please feel free to contact me at . Sincerely, Herbert Wilder, 11/28/2022 7:55:05 AM This report has been signed electronically.
[2022-11-28 08:13] VITALS: BP 103/66
== END 2022-11-28 08:32 | disposition home or self-care (01) ==
LOC: EN 06:08 → AC 06:09
PROVIDERS: Anesthesiology; PCP Nurse Practitioner Family; Referring Provider Nurse Practitioner Family; Visit Provider Internal Medicine Gastroenterology
PROC: 0DJD8ZZ Inspection of Lower Intestinal Tract, Via Natural or Artificial Opening Endoscopic (ICD-10-PCS; CPT 45378; principal; 2022-11-28 07:10)
DX: K52.832 Lymphocytic colitis (principal); K31.89 Other diseases of stomach and duodenum; K63.89 Other specified diseases of intestine; K21.00 Gastro-esophageal reflux disease with esophagitis, without bleeding; K29.70 Gastritis, unspecified, without bleeding; R63.4 Abnormal weight loss; E66.9 Obesity, unspecified; Z87.891 Personal history of nicotine dependence; Z68.30 Body mass index [BMI] 30.0-30.9, adult
CPT/HCPCS: 43239; 45380; 81025; 88305; 88313; 88342; J7120; J2405

== ENCOUNTER → 2023-01-09 | Outpatient (CLI) | payer OTHER, MEDICAID, SELFPAY ==
--- NOTE | 2023-01-09 08:01 | NM_ITS ---
CLINICAL: 22-year-old female with history of epigastric, right upper quadrant pain. RADIONUCLIDE HEPATOBILIARY SCINTIGRAPHY COMPARISON: Gallbladder ultrasound report 07/24/2022, CT of the abdomen-pelvis report 07/24/2022 FINDINGS: Following the intravenous administration of 5.3 mCi of 99m Tc Mebrofenin, hepatobiliary images reveal: 1. Relatively prompt and homogeneous radiopharmaceutical concentration is noted by a normal sized liver. No parenchymal defects are identified. 2. Gallbladder activity is identified at 10 minutes post radiopharmaceutical administration. 3. Small intestinal tract is observed at 45 minutes following tracer injection. 4. Washout of the radiopharmaceutical by the hepatic parenchyma appears qualitatively normal. Cholecystokinin (0.02 ug/kg) was administered intravenously over a 30-minute period. The post CCK gallbladder ejection fraction calculated at 20 minutes following Cholecystokinin administration was noted to be 25.0 % (normal greater than 35%). There is gallbladder refilling following cholecystokinin administration. NM/Hepatobilliary Img w/Pharm Int IMPRESSION: 1. ABNORMAL 99m Tc Mebrofenin hepatobiliary imaging examination with Cholecystokinin. A. A gallbladder ejection fraction calculated to be less than 35% following the administration of Cholecystokinin is consistent with the presence of functional hepatobiliary disease (gallbladder) and/or organic hepatobiliary disease (chronic acalculous cholecystitis and/or cystic duct syndrome) in patients with intermediate to high pretest probabilities of hepatobiliary illness. (Kim Ford et al, Journal of Nuclear Medicine 32:1695, 1991). B. Refilling of the gallbladder following cholecystokinin administration may represent sphincter of Oddi dysfunction. Sphincter of Oddi manometry may be indicated. Electronically Signed: Dakota Chambers, at 23:50 EDT ,
== END | disposition home or self-care (01) ==
PROVIDERS: PCP Nurse Practitioner Family; Referring Provider Nurse Practitioner Adult Health; Visit Provider Nurse Practitioner Adult Health
DX: R10.13 Epigastric pain (principal)
CPT/HCPCS: 78227; A9537; J2805

== ENCOUNTER 2023-02-18 08:05 | Day surgery (SDC) | payer OTHER, SELFPAY ==
[2023-02-18] VITALS (8 sets, daily range): BP systolic 94–149; BP diastolic 47–102; PULSE 79–115; RESP 16–24; TEMP 36.3–36.8; O2SAT 92–100
--- NOTE | 2023-02-18 08:27 | EKG12_ITS ---
Test Reason : PRE-OP Blood Pressure : / mmHG Vent. Rate : 073 BPM Atrial Rate : 073 BPM P-R Int : 128 ms QRS Dur : 076 ms QT Int : 370 ms P-R-T Axes : 035 047 050 degrees QTc Int : 407 ms Normal sinus rhythm with sinus arrhythmia Normal ECG No previous ECGs available Confirmed by MARK DEAL, MINNA ([id number]), assistant production editor MICHAEL LAMBERT ([id number]) on 02/21/2023 9:19:25 AM Referred By: Nicolasa Ferrer Confirmed By:MINNA FLORES MD
[2023-02-18] MEDS: Lactated Ringers 1,000 ML 15 ML IV ×2 (08:29→10:46)
[2023-02-18 08:30] LABS: Internal QC Validated? YES +Cl - CLEAR BKGD; Pregnancy, Urine Negative Negative
--- NOTE | 2023-02-18 08:38 | PCM.HP.BLA ---
History and Physical Date of Admission: 02/18/23 Date of Service:? 02/11/23 MR#: [id number] Acct: [id number] Name:DANII MILLER Rep #: [id number] : 2000 ? ? Provider: Dr. Nicolasa Ferrer MD Age/Sex:? 22/F ? ? [place] [facility] [place] Status: Signed Intake Intake Visit Reasons:?GALLBLADDER CONSULT 01/29 Chief Complaint: gallbladder Allergies No Known Allergies Allergy (Verified 02/11/23 14:22) Medications medroxyprogesterone 150 mg/mL intramuscular suspension (Depo-Provera) 300 mg IM Q90D 07/24/22 [History Confirmed 02/11/23] budesonide 3 mg capsule,delayed,extended release 9 mg PO QAM #90 ea 12/13/22 [Rx Confirmed 02/11/23] Hydrocortisone 2.5%/lidocaine 5% suppository (cmpd) (hydrocortisone 2.5%/lidocaine 5% suppository (compound)) #30 ea 01/29/23 [Rx Confirmed 02/11/23] omeprazole 40 mg capsule,delayed release 40 mg PO QDAY #30 caps 01/29/23 [Rx Confirmed 02/11/23] sucralfate 1 gram tablet (Carafate) 1 g PO QACHS #56 tabs 02/11/23 [Rx Confirmed 02/11/23] PFSH Medical History? Abdominal pain Dietary restriction Hemorrhage of anus and rectum History of GI bleed IBS (irritable bowel syndrome) Pelvic pain Smoker Wears glasses Surgical History? History of colonoscopy History of esophagogastroduodenoscopy (EGD) Family History?(Updated 01/29/23 @ 15:14 by Catrina Acosta) Father?? Osteomyelitis Diabetes HypertensionMother Thyroid disorder Asthma Kidney disease Social History?(Updated 01/29/23 @ 15:15 by Catrina Acosta) Smoking Status:? Current every day smoker tobacco type: e-cigarettes alcohol intake:? current alcohol intake frequency: a few times a month substance use type:? marijuana HPI HPI HPI: 22-year-old female presents for follow-up due to epigastric/right upper quadrant pain and abnormal HIDA scan.? Patient has been on omeprazole states that the pain is not quite as severe as it was previously.? However she still admits to pain right after even during eating.? Patient also has pain right before eating as well.? She only occasionally has the right upper quadrant pain about 30 minutes after eating.? Patient states her diarrhea has resolved since being on the omeprazole as well?she is still taking her budesonide as she was previously diagnosed with microscopic colitis by Dr. Wilder in November. Exam Const General: cooperative, healthy appearing and no acute distress [facility] Head: normal to inspection Resp Effort & Inspection: normal respiratory effort Cardio Rate: regular rate GI Inspection: non-distended Palpation: soft, no guarding, no hernias and tender in the epigastrum and in the RUQ; with no rebound tenderness Skin General: no rashes or lesions noted Neuro General: patient oriented x3 Extrem General: no clubbing, cyanosis or edema Psych Affect: normal affect Assessment and Plan Assessment and Plan (1) Abnormal biliary HIDA scan: ?Status:?Acute (2) Epigastric pain: ?Status:?Chronic (3) Bile reflux gastritis: ?Status:?Acute (4) Hemorrhoid: ?Status:?Acute ? ? ? Medications: New sucralfate (Carafate) 1 g? PO QACHS 56 tabs 0RF ? ? Plan Discussed with patient was still concerned that primary pain is due to her stomach thus we will give her Carafate x2 weeks along with the omeprazole.? However patient has just recently had an EGD by Dr. Wilder in November so would not plan to repeat this.? We will plan to proceed with laparoscopic cholecystectomy. Reviewed the anatomy with the patient and discussed the procedure: laparoscopic cholecystectomy with possible cholangiograms, possible open. Review risks including but not limited to bleeding, infection, hernia, bile leak, retained gallstones requiring another procedure ERCP- Endoscopic Retrograde Cholangiopancreatography, injury to another organ (bile ducts, common bile duct, small bowel, etc.) and conversion to an open procedure. All questions were answered. Nicolasa Ferrer M.D. Pager: [phone] [facility] [address] [place] [address], [address] [place] [id number] Office: [phone] Coding Level of Care Code Off vis,est,level 4 Diagnoses Abnormal biliary HIDA scan? R94.8 Epigastric pain? R10.13 Bile reflux gastritis? K29.60 Hemorrhoid? K64.9 02/13/23 1404 <Electronically signed by Nicolasa Ferrer MD> Date Nicolasa Ferrer MD
[2023-02-18] MEDS: Cefazolin 2 GM in 0.9% Normal Saline 100 ML IV (09:02)
--- NOTE | 2023-02-18 09:30 | RAD_ITS ---
Exam: FL Cholangiogram and/or Pancreatography OR Comparison: History: LAP JACK WITH IOC Radiation: Cumulative dose, 1.1 mGy. Fluoroscopy time: Total 3.9 seconds. Continuous mode. Image number: 18. FINDINGS: Intraoperative exam with injection of cystic duct. Well-opacified Central intrahepatic and extrahepatic ducts and some contrast extravasation in the gallbladder fossa or proximal gallbladder. No filling defect in the common duct. No duct dilatation. RAD/Cholangiogram/ O R,Initial IMPRESSION: Intraoperative exam. No filling defect or dilatation of the common duct. Some contrast reflux or extravasation in the expected region of the gallbladder- gallbladder fossa. Electronically Signed: Pebbles Babcock MD at 9:09 EDT ,
--- NOTE | 2023-02-18 09:50 | GALL_PTH ---
PATIENT: DANII LYLES [place] [facility] [id number] AGE/SX: ROOM: RE02/18/[address]: Dr. Nicolasa Ferrer MD : 2000 BED: DIS: 02/18/2023 SPEC #: [id number] RECD: 02/18/23 13:19 STATUS: JAVIER REQ #: [id number] TRU: 02/18/23 09:[address]: Nicolasa Ferrer DEPT: SURGICAL PATHOLOGY RECD BY: Josefa Meyers ENTERED: 02/19/23 07:54 SP TYPE: NAVARRO GRAHAM DR: Rosalie Hopkins, [employer] ARCHITECT-C Tissues: Gallbladder, NOS Procedures: Surgery Specimen Level III HEADER OPERATION: Laparoscopic cholecystectomy with IOC PRE-OP DIAGNOSIS: Abnormal biliary HIDA scan, epigastric pain, bile reflux gastritis, hemorrhoid TISSUE SUBMITTED: Gallbladder MICROSCOPIC DIAGNOSIS Gallbladder, cholecystectomy: Mild chronic cholecystitis and cholesterolosis. See comment. SJ:zachariah 02/20/2023 COMMENT No stones are identified in the container or in the gallbladder. MICROSCOPIC DESCRIPTION Slides are reviewed. GROSS DESCRIPTION Received is one container labeled with the patient's name and designated gallbladder. The specimen consists of a gallbladder measuring 7.0 cm in length and up to 2.0 cm in diameter. The external surface is pink-avilez, smooth and glistening for the most part. Focally it is granular, hemorrhagic and contains cautery artifact. The gallbladder contains green-yellow mucoid bile. No stones are identified in the container or in the gallbladder. The mucosa is bile-stained and without any mass lesions. The gallbladder wall measures 0.1 cm in thickness. Nurse Ob sections from the gallbladder and the cystic duct are submitted in one cassette. / ENMANUEL:zachariah 02/19/2023 TC:3 CPT: 43166
[2023-02-18] MEDS: Bupivacaine Mpf 0.5% 30 ML VIAL (09:55)
--- NOTE | 2023-02-18 09:56 | PCM.OPRPT ---
Report of Operation Date of Procedure: 02/18/23 Pre-Operative Diagnosis: Biliary dyskinesia, right upper quadrant and epigastric pain Post-Operative Diagnosis: Same Surgery/Procedure Performed:: Laparoscopic cholecystectomy with cholangiograms Surgeon: Nicolasa Ferrer cisco certified internetwork expert: Alicia Mari Type of Anesthesia: General/Supplemental Anesthesiologist: Jason Rodriguez Special Medications: Ancef 2 g IV x1 Specimen's removed: Gallbladder Estimated Blood Loss (mL): < 10 cc Description of Procedure: Indications: this is a 22 year-old female who developed abdominal pain/nausea/vomiting and on workup was found to have biliary dyskinesia, no gallstones, with a normal common bile duct. Laparoscopic cholecystectomy was elected. Description procedure: The patient was placed on operating table in supine position. A timeout was completed verifying correct patient, procedure, site, position and special equipment prior to beginning procedure. General Anesthesia was induced. The abdomen was prepped and draped in usual sterile fashion. An incision was made in the natural skin line above the umbilicus. The fascia was elevated and incised. The peritoneum was elevated and incised. Entry into the peritoneum was confirmed visually and no bowel was noted in the vicinity of the incision. Sanders trocar was placed. The abdomen was insufflated with carbon dioxide to a pressure of 12-15 mmHg. Patient tolerated insufflation well. The laparoscope was then inserted and abdomen inspected. No injuries from initial trocar placement were noted. Additional trochars were then inserted in the following locations 5 mm trocar in the epigastrium and 2 more 5 mm trochars along the right costal margin. The abdomen was inspected no abnormalities were found. The table is placed in reverse Trendelenburg position with the right side up. The adhesions between the gallbladder and omentum were lysed sharply. The dome of the gallbladder was grasped with atraumatic grasper passed through the lateral port and retracted over the dome of the liver. Infundibulum was then grasped with atraumatic grasper through the midclavicular port and retracted to the right lower quadrant. This maneuver exposed Calot's triangle. The peritoneum overlying the gallbladder infundibulum was then incised and cystic duct and artery identified and circumferentially dissected. Ennis catheter was used for cholangiograms. The cholangiogram showed good filling of the common bile duct into the duodenum with no filling defects, good filling of the right and left bile ducts as well. The cystic duct and artery were then doubly clipped and divided close to the gallbladder. The gallbladder then dissected from its peritoneal attachments by electrocautery. Hemostasis was checked and the gallbladder and contained stones were removed using the endoscopic retrieval bag through the umbilical port. The gallbladder is passed off table as specimen. The gallbladder fossa was irrigated with saline and hemostasis obtained. There is no evidence of bleeding from the gallbladder fossa or cystic artery leakage of bile from the cystic duct stump. Secondary trochars removed under direct vision. No bleeding was noted the trocar sites. The laparoscope was withdrawn and umbilical trocar removed. The abdomen was allowed to collapse. The fascia of the 12 mm trocar was closed with a [id number] 0 Vicryl suture. The skin was closed with sutures of 4-0 Monocryl and Steri-Strips. The patient was extubated. The patient tolerated procedure well and was taken to the postanesthesia care unit in stable condition. Complications None
--- NOTE | 2023-02-18 09:58 | EX.PCM.DISCH ---
Discharge Instructions Diet Discharge Diet: Light diet - advance as tolerated Activity Discharge Activity: May Not Drive (while taking narcotic pain medications.) May shower in (days): 1 Lifting Restrictions: no lifting >20 lbs x 2 wks, no strenuous exercise for 4 wks Dressing / Incision Call your doctor if your incision/area has: Continuous Slow Oozing, Sudden Increased Bleeding, Increased Pain/ Swelling, Increased Redness, Foul Smelling Discharge and Swelling at the incision site Call your doctor if you observe: Fever of 101 or Higher Remove Dressing in: 2 days Cleanse incision/area with: Soap & Water Additional Dressing/Incision Instructions:: Steri-Strips will fall off in 7 to 10 days, if they do not fall off okay to remove after 10 days. Follow Up Care Please Follow Up With: Nicolasa Ferrer MD When: Call the office for a follow-up appointment 2 weeks; after 5 PM and on the weekends call [phone] with any concerns. Test Results: Test results from this visit will be discussed in further detail at your follow-up appointment, if applicable. Discharge Plan Admission Attending Provider: Nicolasa Ferrer Primary Care Provider: Rosalie Hopkins NP Discharge Orders/Prescriptions Prescriptions: New oxycodone-acetaminophen 5-325 mg tablet 1 - 2 tab PO Q6H PRN (Reason: pain) 3 Days Qty: 14 0RF Continued omeprazole 40 mg capsule,delayed release(DR/EC) 40 mg PO QDAY Qty: 30 2RF Rx Instructions: swallow whole; do not crush, chew, dissolve, cut, break (DME) hydrocortisone 2.5%/lidocaine 5% suppository (compound) Suppository See Rx Instructions .Route Qty: 30 1RF Rx Instructions: per rectum BID sucralfate [Carafate] 1 gram tablet 1 g PO QACHS Qty: 56 0RF medroxyprogesterone [Depo-Provera] 150 mg/mL Suspension 300 mg IM Q90D hydrocortisone acetate [Anucort-HC] 25 mg Suppository 25 mg AL PRN PRN (Reason: Constipation) budesonide 3 mg capsule,delayed,extend.release 9 mg PO QAM Qty: 90 2RF Referrals / Follow Up: Rosalie Hopkins NP, TRANSPORTATION ATTENDANT-C [Primary Care Provider] - Disposition Disposition (needs filled in before D/C Order can be placed): Home, Self Care
[2023-02-18] MEDS: Acetaminophen 325 MG Tablet PO (11:43)
[2023-02-18] MEDS: oxyCODONE 5 MG Tablet PO (11:43)
== END 2023-02-18 12:39 | disposition home or self-care (01) ==
LOC: SDC 08:06 → AC 08:07
PROVIDERS: Anesthesiology; PCP Nurse Practitioner Family; Referring Provider Surgery; Visit Provider Surgery
PROC: (CPT 47610; principal; 2023-02-18 09:30)
DX: K80.10 Calculus of gallbladder with chronic cholecystitis without obstruction (principal); K82.8 Other specified diseases of gallbladder; F17.290 Nicotine dependence, other tobacco product, uncomplicated; Z79.899 Other long term (current) drug therapy
CPT/HCPCS: 47563; 74300; 76000; 81025; 88304; 93005; J7120; J2405